=== PATIENT | female | born 1970 | race Caucasian/White ===

== ENCOUNTER 2016-05-23 19:01 | Emergency (ER) | payer OTHER ==
[2016-05-23 19:44] VITALS: BP 96/56
[2016-05-23] MEDS ORDERED: Sulfamethox/Trimethoprim DS 800/160* TAB PO ONE (20:01)
[2016-05-23] MEDS ORDERED: Phenazopyridine TAB* 100 MG PO ONE (20:01)
--- NOTE | 2016-05-23 21:55 | UC ---
Complaint Female HPI - HPI Summary HPI Summary: Pt presents with c/o of urniary symptoms of frequency, urgency and dysuria. Pt also c/o of retained tampon. Pt states she place a tampon in her vagina 2 days ago and forgot that it was there and placed another one and removed only one tampon. Pt currently has her menses. - History Of Current Complaint Chief Complaint: UCGU Stated Complaint: personal Time Seen by Provider: 05/23/16 19:58 Hx Obtained From: Patient Hx Last Menstrual Period: CURRENT ?: No Onset/Duration: Sudden Onset - UTI symptoms, Gradual Onset - retained tampon Timing: Constant Severity Initially: Mild Severity Currently: Mild Pain Intensity: 0 Pain Scale Used: 0-10 Numeric Character: Dull, Burning Aggravating Factor(s): Urination Associated Signs And Symptoms: Positive: Back Pain - low back - Allergies/Home Medications Allergies/Adverse Reactions: Allergies Allergy/AdvReac Type Severity Reaction Status Date / Time Penicillins Allergy Intermediate Rash Verified 05/23/16 19:28 Gabapentin [From Neurontin] Allergy Nausea Verified 05/23/16 19:28 Home Medications: Home Medications Bupropion HCl [Wellbutrin Sr] 200 mg PO TID 05/23/16 [History Confirmed 05/23/16 ] Lamotrigine [Lamictal] 150 mg PO DAILY 05/23/16 [History Confirmed 05/23/16] guanFACINE TAB* [Tenex TAB*] 1 mg PO BID 05/23/16 [History Confirmed 05/23/16] traZODone TAB* [Desyrel TAB*] 50 mg PO BEDTIME 05/23/16 [History Confirmed 05/23] PMH/Surg Hx/FS Hx/Imm Hx Previously Healthy: Yes Endocrine History Of: Denies: Diabetes, Thyroid Disease, Hyperthyroidism, Hypothyroidism, Dyslipidemia Cardiovascular History Of: Denies: Cardiac Disorders, Hypertension, Pacemaker/ICD, Myocardial Infarction , Congestive Heart Failure, Atrial Fibrillation, Deep Vein Thrombosis, Bleeding Disorders Respiratory History Of: Reports: COPD GI/ History Of: Denies: Gastroesophageal Reflux, Ulcer, Gastrointestinal Bleed, Gall Bladder Disease, Kidney Stones, Diverticulitis, Renal Disease, Urosepsis Neurological History Of: Denies: TIA, CVA, Dementia, Seizures, Migraine Psychological History Of: Reports: Anxiety, Depression, Bipolar Disorder Cancer History Of: Denies: Lung Cancer, Colorectal Cancer, Breast Cancer, Prostate Cancer, Cervical Cancer Other History Of: Hepatitis C - Surgical History Surgical History: Yes Surgery Procedure, Year, and Place: foot; tubal ligation; cyst on labia- POS for MRSA,. LIVER BX. BREAST BX - Social History Alcohol Use: None Substance Use Type: None Substance Use Comment - Amount & Last Used: REHAB FOR MARIJUANA USE--36 DAYS W/ OUT USE. Smoking Status (MU): Former Smoker Type: Cigarettes Amount Used/How Often: 1/2 PPD When Did the Patient Quit Smoking/Using Tobacco: 36 DAYS AGO - Immunization History Most Recent Tetanus Shot: 3 yrs + Review of Systems Constitutional: Negative Skin: Negative Eyes: Negative ENT: Negative Respiratory: Negative Cardiovascular: Negative Gastrointestinal: Abdominal Pain - pelvic Genitourinary: Dysuria, Hematuria, Frequency, Urgency Motor: Negative Neurovascular: Negative Musculoskeletal: Negative Neurological: Negative Psychological: Negative All Other Systems Reviewed And Are Negative: Yes Physical Exam Triage Information Reviewed: Yes Appearance: Other: - anxious, fidgety Vital Signs: Initial Vital Signs Temp 97.5 F 05/23/16 19:17 Pulse 76 05/23/16 19:17 Resp 16 05/23/16 19:17 BP 96/56 05/23/16 19:17 Pulse Ox 97 05/23/16 19:17 Vital Signs Reviewed: Yes Eye Exam: Normal ENT Exam: Normal Neck exam: Normal Respiratory Exam: Normal Cardiovascular Exam: Normal Abdominal Exam: Other Abdomen Description: Positive: Other: - retained tampon removed without difficulty Musculoskeletal Exam: Normal Neurological Exam: Normal Psychological Exam: Normal Psychological: Positive: Other: - anxious, fidgety Skin Exam: Normal Complaint Female Dx - Differential Dx/Diagnosis Differential Diagnosis/HQI/PQRI: Urinary Tract Infection, Other - retained tampon Provider Diagnoses: UTI. retained tampon- removed intact Discharge - Discharge Plan Condition: Stable Disposition: HOME Prescriptions: Phenazopyridine TAB* [Pyridium 100 mg TAB*] 100 mg PO TID #3 tab Sulfamethox/Trimethoprim DS* [Bactrim DS 800/160 TAB*] 1 tab PO BID #14 tab Patient Education Materials: Urinary Tract Infection in Women (ED) Referrals: DIDIER Tamez [Primary Care Provider] - Additional Instructions: Retained tampon. Your tampon has been removed. Please monitor for any signs or symptoms that may indicate an infection, fever, pain, unusual vaginal discharge.
== END 2016-05-23 20:40 | disposition home or self-care (01) ==
LOC: UCCORT 19:01 → MERGE 19:01 → UCCORT 20:40
DX: N39.0 Urinary tract infection, site not specified (principal); R31.9 Hematuria, unspecified; T19.2XXA Foreign body in vulva and vagina, initial encounter; X58.XXXA Exposure to other specified factors, initial encounter; Y93.9 Activity, unspecified; Y92.9 Unspecified place or not applicable; Z88.0 Allergy status to penicillin; Z87.891 Personal history of nicotine dependence; Z32.02 Encounter for pregnancy test, result negative
CPT/HCPCS: 81003; 84702; 87077; 87086; 87186; 99213; A9270-GY; G0463

== ENCOUNTER 2016-12-17 09:04 | Emergency (ER) | payer SELFPAY ==
[2016-12-17] MEDS ORDERED: NS 0.9% 1000 ML* 1,000 ML IV ONE (09:21)
[2016-12-17] MEDS ORDERED: Pantoprazole IV* 40 MG IV ONE (09:21)
[2016-12-17] MEDS ORDERED: Albuterol/Ipratropium NEB.SOL* Albuterol 2.5 MG/Ipratropium 0.5 MG 3 ML INH SCH (10:00)
--- NOTE | 2016-12-17 10:15 | RAD ---
INDICATION: Productive cough with thick phlegm causing shortness of breath. Hemoptysis. Recent diagnosis of COPD. COMPARISON: October 28, 2016 chest radiograph and October 21, 2016 CT. TECHNIQUE: Dual energy PA and routine lateral views of the chest were obtained. REPORT: Elevated lung volumes and both diffuse mild prominence of the interstitial markings and patchy rarefaction of the mid to upper lung zone interstitial markings. No pulmonary infiltrate, focal pulmonary lesion, pleural effusion, pneumothorax. The heart, pulmonary vasculature, and mediastinal contours are unremarkable. Unremarkable soft tissue contours and osseous structures. IMPRESSION: Stigmata of obstructive lung disease. No acute pulmonary or cardiac process evident.
[2016-12-17 11:22] LABS: ALT 22 U/L (7-52); Albumin 4.5 g/dL (3.2-5.2); Alkaline Phosphatase 92 U/L (34-104); BUN/Creatinine Ratio 17.3 (8-20); Blood Urea Nitrogen 14 mg/dL (6-24); CO2 Carbon Dioxide 27 mmol/L (22-32); Chloride 103 mmol/L (101-111); EGFR African American 98.8 (>60); EGFR Non-African American 76.8 (>60); Globulin 3.5 g/dL (2-4); Glucose 125 mg/dL (70-100); Sodium 136 mmol/L (133-145)
[2016-12-17 11:23] LABS: Anion Gap 6 mmol/L (2-11)
[2016-12-17 11:44] LABS: Comments Flag Yes; Hematocrit 44 % (35-47); Hemoglobin 14.4 g/dl (12.0-16.0); Mean Corpuscular HGB Conc 33 g/dl (31-36); Mean Corpuscular Hemoglobin 27 pg (27-31); Mean Corpuscular Volume 81 fL (80-97); Red Blood Count 5.41 10^6/ul (4.0-5.4); Red Cell Distribution Width 17 % (10.5-15); White Blood Count 10.2 10^3/ul (3.5-10.8)
[2016-12-17 11:45] LABS: Add Diff/Slide Review? Slide Review Added
[2016-12-17] MEDS ORDERED: Azithromycin TAB* 250 MG PO ONE (11:51)
[2016-12-17 12:54] VITALS: BP 100/51
--- NOTE | 2016-12-19 08:08 | ED ---
Matty Fagan Angela, scribed for Stanton Garrett MD on 12/17/16 at 0936 . Abdominal Pain/Female - HPI Summary HPI Summary: This pt is a 46 y/o female presenting to [facility] c/o hematemesis and unexplained bruising x1 week. Pt reports that for the past 4 days she has had productive cough with thick sputum. She states that when she blows from her nose she has bloody and thick output. There are no alleviating or aggravating factors. Pt endorses chills and headache (for the past 3 days, yesterday worse). She denies fever. Pt is a current tobacco and marijuana smoker but denies alcohol use. She does not take albuterol. PMHx: Hepatitis C, MRSA and COPD. PSHx: surgery from abscess in MRSA. - History of Current Complaint Chief Complaint: EDAbdPain Stated Complaint: COUGH/VOMITING BLOOD Time Seen by Provider: 12/17/16 09:19 Hx Obtained From: Patient Hx Last Menstrual Period: CURRENT Onset/Duration: Lasting Days Timing: Days Pain Intensity: 2 Radiates: No Aggravating Factor(s): Nothing Alleviating Factor(s): Nothing Associated Signs and Symptoms: Positive: Cough, Vomiting - hematemesis, Other: - unexplained bruising, headache, chills.. Negative: Fever Allergies/Adverse Reactions: Allergies Allergy/AdvReac Type Severity Reaction Status Date / Time Penicillins Allergy Intermediate Rash Verified 10/31/16 16:50 Acetaminophen Allergy See Comment Verified 10/31/16 16:50 Gabapentin [From Neurontin] Allergy Nausea Verified 10/31/16 16:50 PMH/Surg Hx/FS Hx/Imm Hx Endocrine/Hematology History: Denies: Hx Diabetes, Hx Thyroid Disease Cardiovascular History: Denies: Hx Congestive Heart Failure, Hx Deep Vein Thrombosis, Hx Hypertension , Hx Myocardial Infarction, Hx Pacemaker/ICD Respiratory History: Reports: Hx Chronic Obstructive Pulmonary Disease (COPD) Denies: Hx Lung Cancer GI History: Reports: Hx Cirrhosis - Hep C - last labs 2014 Denies: Hx Gall Bladder Disease, Hx Gastrointestinal Bleed, Hx Ulcer, Hx Urosepsis History: Reports: Hx Kidney Infection - currently UTI Denies: Hx Kidney Stones, Hx Renal Disease Musculoskeletal History: Reports: Hx Arthritis - "OA of spine and hands", Other Musculoskeletal History - "Bone spurs" on the neck Neurological History: Reports: Hx Migraine Denies: Hx Dementia, Hx Seizures, Hx Transient Ischemic Attacks (TIA) Psychiatric History: Reports: Hx Anxiety, Hx Depression, Hx Post Traumatic Stress Disorder, Hx Bipolar Disorder, Hx Substance Abuse - Denies ETOH and drugs other than marijuana since Mar 2016 - s/p rehab - Surgical History Surgery Procedure, Year, and Place: foot; tubal ligation; cyst on labia- POS for MRSA,. LIVER BX. BREAST BX - Immunization History Date of Tetanus Vaccine: unk Date of Influenza Vaccine: none Infectious Disease History: Reports: Hx Hepatitis - C, Hx of Known/Suspected MRSA - bartholin cyst 01/2015 Denies: Hx Clostridium Difficile, Hx Human Immunodeficiency Virus (HIV), Hx Shingles, Hx Tuberculosis, Hx Known/Suspected VRE, Hx Known/Suspected VRSA, History Other Infectious Disease, Traveled Outside the [place] in Last 30 Days - Family History Known Family History: Positive: Cardiac Disease, Diabetes - Social History Alcohol Use: None Hx Substance Use: Yes Substance Use Type: Reports: Marijuana Substance Use Comment - Amount & Last Used: daily Hx Tobacco Use: Yes Smoking Status (MU): Light Every Day Tobacco Smoker Type: Cigarettes Amount Used/How Often: 1/2 PPD Review of Systems Positive: Chills. Negative: Fever Eyes: Negative ENT: Negative Positive: Cough Positive: Vomiting - hematemesis Positive: Bruising - unexplained All Other Systems Reviewed And Are Negative: Yes Physical Exam - Summary Physical Exam Summary: VITAL SIGNS: Reviewed. GENERAL: Patient is a well-developed and nourished female who is lying comfortable in the stretcher. Patient is not in any acute respiratory distress. HEAD AND FACE: No signs of trauma. No ecchymosis, hematomas or skull depressions. No sinus tenderness. EYES: PERRLA, EOMI x 2, No injected conjunctiva, no nystagmus. EARS: Hearing grossly intact. Ear canals and tympanic membranes are within normal limits. MOUTH: Oropharynx within normal limits. NECK: Supple, trachea is midline, no adenopathy, no JVD, no carotid bruit, no c- spine tenderness, neck with full ROM. CHEST: Symmetric, no tenderness at palpation LUNGS: There is slight wheezing and some crackles in both sides of the lungs. CVS: Regular rate and rhythm, S1 and S2 present, no murmurs or gallops appreciated. ABDOMEN: Soft, non-tender. No signs of distention. No rebound no guarding, and no masses palpated. Bowel sounds are normal. EXTREMITIES: FROM in all major joints, no edema, no cyanosis or clubbing. NEURO: Alert and oriented x 3. No acute neurological deficits. Speech is normal and follows commands. SKIN: Dry and warm Triage Information Reviewed: Yes Vital Signs On Initial Exam: Initial Vitals Temp Pulse Resp BP Pulse Ox 96.7 F 76 20 107/72 98 12/17/16 09:13 12/17/16 09:13 12/17/16 09:13 12/17/16 09:13 12/17/16 09:13 Vital Signs Reviewed: Yes Diagnostics - Vital Signs Vital Signs Temp Pulse Resp BP Pulse Ox 12/17/16 09:13 96.7 F 76 20 107/72 98 - Laboratory Lab Results: Lab Results 12/17/16 12/17/16 12/17/16 Range/Units 10:48 10:48 10:48 WBC 10.2 (3.5-10.8) 10^3/ul RBC 5.41 H (4.0-5.4) 10^6/ul Hgb 14.4 (12.0-16.0) g/dl Hct 44 (35-47) % MCV 81 (80-97) fL MCH 27 (27-31) pg MCHC 33 (31-36) g/dl RDW 17 H (10.5-15) % Plt Count (150-450) 10^3/ul MPV Not Reportable Neut % (Auto) 75.8 (38-83) % Lymph % (Auto) 17.3 L (25-47) % Williams % (Auto) 5.2 (1-9) % Eos % (Auto) 0.7 (0-6) % Baso % (Auto) 1.0 (0-2) % Absolute Neuts (auto) 7.7 (1.5-7.7) 10^3/ul Absolute Lymphs (auto) 1.8 (1.0-4.8) 10^3/ul Absolute Monos (auto) 0.5 (0-0.8) 10^3/ul Absolute Eos (auto) 0.1 (0-0.6) 10^3/ul Absolute Basos (auto) 0.1 (0-0.2) 10^3/ul Absolute Nucleated RBC 0.01 10^3/ul Nucleated RBC % 0.1 INR (Anticoag Therapy) 0.89 (0.89-1.11) APTT 33.7 (26.0-36.3) seconds Sodium 136 (133-145) mmol/L Potassium TNP Chloride 103 (101-111) mmol/L Carbon Dioxide 27 (22-32) mmol/L Anion Gap 6 (2-11) mmol/L BUN 14 (6-24) mg/dL Creatinine 0.81 (0.51-0.95) mg/dL Est GFR ( Amer) 98.8 (>60) Est GFR (Non-Af Amer) 76.8 (>60) BUN/Creatinine Ratio 17.3 (8-20) Glucose 125 H (70-100) mg/dL Calcium 10.0 (8.6-10.3) mg/dL Total Bilirubin 0.40 (0.2-1.0) mg/dL AST TNP ALT 22 (7-52) U/L Alkaline Phosphatase 92 (34-104) U/L Ammonia (16-53) mol/L Total Protein 8.0 (6.4-8.9) g/dL Albumin 4.5 (3.2-5.2) g/dL Globulin 3.5 (2-4) g/dL Albumin/Globulin Ratio 1.3 (1-3) Blood Type Antibody Screen 12/17/16 12/17/16 12/17/16 Range/Units 10:48 10:55 11:55 WBC (3.5-10.8) 10^3/ul RBC (4.0-5.4) 10^6/ul Hgb (12.0-16.0) g/dl Hct (35-47) % MCV (80-97) fL MCH (27-31) pg MCHC (31-36) g/dl RDW (10.5-15) % Plt Count (150-450) 10^3/ul MPV Neut % (Auto) (38-83) % Lymph % (Auto) (25-47) % Williams % (Auto) (1-9) % Eos % (Auto) (0-6) % Baso % (Auto) (0-2) % Absolute Neuts (auto) (1.5-7.7) 10^3/ul Absolute Lymphs (auto) (1.0-4.8) 10^3/ul Absolute Monos (auto) (0-0.8) 10^3/ul Absolute Eos (auto) (0-0.6) 10^3/ul Absolute Basos (auto) (0-0.2) 10^3/ul Absolute Nucleated RBC 10^3/ul Nucleated RBC % INR (Anticoag Therapy) (0.89-1.11) APTT (26.0-36.3) seconds Sodium (133-145) mmol/L Potassium 4.0 Chloride (101-111) mmol/L Carbon Dioxide (22-32) mmol/L Anion Gap (2-11) mmol/L BUN (6-24) mg/dL Creatinine (0.51-0.95) mg/dL Est GFR ( Amer) (>60) Est GFR (Non-Af Amer) (>60) BUN/Creatinine Ratio (8-20) Glucose (70-100) mg/dL Calcium (8.6-10.3) mg/dL Total Bilirubin (0.2-1.0) mg/dL AST 22 ALT (7-52) U/L Alkaline Phosphatase (34-104) U/L Ammonia 69 H (16-53) mol/L Total Protein (6.4-8.9) g/dL Albumin (3.2-5.2) g/dL Globulin (2-4) g/dL Albumin/Globulin Ratio (1-3) Blood Type O Positive Antibody Screen Negative Result Diagrams: 12/17/16 10:48 12/17/16 11:55 Lab Statement: Any lab studies that have been ordered have been reviewed, and results considered in the medical decision making process. - Radiology Chest XR Xray Interpretation: Positive (See Comments) - IMPRESSION: Stigmata of obstructive lung disease. No acute pulmonary or cardiac process evident. ED physician has reviewed this radiology report and agrees. Radiology Interpretation Completed By: Radiologist Abdominal Pain Fem Course/Dx - Course Course Of Treatment: This pt is a 46 y/o female presenting to [facility] c/o hematemesis and unexplained bruising x1 week. Pt reports that for the past 4 days she has had productive cough with thick sputum. She states that when she blows from her nose she has bloody and thick output. There are no alleviating or aggravating factors. Pt endorses chills and headache (for the past 3 days, yesterday worse). She denies fever. Pt is a current tobacco and marijuana smoker but denies alcohol use. She does not take albuterol. PMHx: Hepatitis C, MRSA and COPD. PSHx: surgery from abscess in MRSA. Test results without any significant abnormalities. Chest XR shows stigmata of obstructive lung disease. No acute pulmonary or cardiac process evident. I believe the pts symptoms are secondary to bronchitis, therefore the pt was given azithromycin. In the ED course, she was given albuterol and her symptoms have significantly improved. Pt will be discharged home with follow up from PCP. Pt is hemodynamically stable , alert and oriented x3. - Diagnoses Differential Diagnosis: Positive: Other - Bronchitis, Pneumonia, URI Provider Diagnoses: Bronchitis Discharge - Discharge Plan Condition: Stable Disposition: HOME Prescriptions: Albuterol HFA INHALER* [Ventolin HFA Inhaler*] 1 puff INH Q4H PRN #1 mdi PRN Reason: Shortness Of Breath Azithromycin TAB* [Zithromax TAB (Z-CLARITZA) 250 mg #6 tabs] 250 mg PO DAILY #4 tab Patient Education Materials: Acute Bronchitis (ED) Referrals: [facility] [place] [facility] [Outside] Additional Instructions: Please follow up with your primary care provider. RETURN TO THE ED FOR ANY WORSENING SYMPTOMS. The documentation as recorded by the Matty jaquez Angela accurately reflects the service I personally performed and the decisions made by me, Stanton Garrett MD.
== END 2016-12-17 13:54 | disposition home or self-care (01) ==
LOC: ED 09:04 → MERGE 09:04 → ED 13:54
DX: J40 Bronchitis, not specified as acute or chronic (principal); R05 Cough; R11.10 Vomiting, unspecified; K92.0 Hematemesis; F17.210 Nicotine dependence, cigarettes, uncomplicated
CPT/HCPCS: 36415; 71020; 80053; 82140; 85025; 85610; 85730; 86850; 86900; 86901; 96365; 99282; A9270-GY

== ENCOUNTER 2017-11-10 15:25 | Emergency (ER) | payer MEDICAID, OTHER ==
[2017-11-10 15:48] VITALS: BP 116/43
--- NOTE | 2017-11-10 16:13 | UC ---
Complaint Male HPI - History of Current Complaint Chief Complaint: UCGU Stated Complaint: URINARY Time Seen by Provider: 11/10/17 15:31 Pain Intensity: 0 - Allergies/Home Medications Allergies/Adverse Reactions: Allergies Allergy/AdvReac Type Severity Reaction Status Date / Time Penicillins Allergy Unknown Rash Verified 11/10/17 15:35 gabapentin Allergy Nausea Verified 11/10/17 15:35 acetaminophen AdvReac Unknown See Comment Verified 11/10/17 15:35 Home Medications: Home Medications Ibuprofen TAB* [Advil TAB*] 800 mg PO Q6H PRN 11/10/17 [History Confirmed ] PMH/Surg Hx/FS Hx/Imm Hx Other History Of: Hepatitis C - Surgical History Surgical History: Yes Surgery Procedure, Year, and Place: foot; tubal ligation; cyst on labia- POS for MRSA,. LIVER BX. BREAST BX - Family History Known Family History: Positive: Cardiac Disease, Diabetes - Social History Alcohol Use: None Substance Use Type: Marijuana Substance Use Comment - Amount & Last Used: OCCSIONALLY Smoking Status (MU): Former Smoker Type: Cigarettes Amount Used/How Often: 1/2 PPD Have You Smoked in the Last Year: Yes When Did the Patient Quit Smoking/Using Tobacco: AUGUST 2017 - Immunization History Most Recent Tetanus Shot: 3 yrs + Physical Exam Vital Signs: Initial Vital Signs Temp 97.6 F 11/10/17 15:37 Pulse 85 11/10/17 15:37 Resp 12 11/10/17 15:37 BP 116/43 11/10/17 15:37 Pulse Ox 99 11/10/17 15:37 Discharge - Sign-Out/Discharge Documenting (check all that apply): Patient Departure All imaging exams completed and their final reports reviewed: No Studies - Discharge Plan Condition: Stable Patient Education Materials: Urinary Tract Infection in Women (ED) Referrals: No Primary Care Phys,NOPCP [Primary Care Provider] - Additional Instructions: A urine culture is pending recheck for new or worsening symptoms recheck in 2 days if not better - Billing Disposition and Condition Condition: STABLE
--- NOTE | 2017-11-10 16:17 | UC ---
Complaint Female HPI - HPI Summary HPI Summary: The patient is a 46-year-old female with a 1-2 day history of urinary frequency urinary urgency and mild dysuria. She denies any back or belly pain. She denies any fever or chills. Denies any vaginal discharge or itching. She has had frequent UTIs in the past. Denies any history of pyelonephritis or kidney stone. - History Of Current Complaint Chief Complaint: UCGU Stated Complaint: URINARY Time Seen by Provider: 11/10/17 15:31 Hx Obtained From: Patient Hx Last Menstrual Period: 11/07/17 STATES GOING THROUGH MENOPAUSE Onset/Duration: Gradual Onset, Lasting Days Timing: Constant Severity Initially: Mild Pain Intensity: 0 Pain Scale Used: 0-10 Numeric Character: Burning Aggravating Factor(s): Urination Alleviating Factor(s): Other Associated Signs And Symptoms: Negative: Fever, Back Pain, Vaginal Bleeding/ Discharge, Vaginal Discharge, Nausea, Vomiting(# Of Episodes =), Genital Swelling, Genital Blisters, Retained Foregin Body (Specify) - Allergies/Home Medications Allergies/Adverse Reactions: Allergies Allergy/AdvReac Type Severity Reaction Status Date / Time Penicillins Allergy Unknown Rash Verified 11/10/17 15:35 gabapentin Allergy Nausea Verified 11/10/17 15:35 acetaminophen AdvReac Unknown See Comment Verified 11/10/17 15:35 Home Medications: Home Medications Ibuprofen TAB* [Advil TAB*] 800 mg PO Q6H PRN 11/10/17 [History Confirmed ] PMH/Surg Hx/FS Hx/Imm Hx Previously Healthy: Yes Other History Of: Hepatitis C - Surgical History Surgical History: Yes Surgery Procedure, Year, and Place: foot; tubal ligation; cyst on labia- POS for MRSA,. LIVER BX. BREAST BX - Family History Known Family History: Positive: Cardiac Disease, Diabetes - Social History Alcohol Use: None Substance Use Type: Marijuana Substance Use Comment - Amount & Last Used: OCCSIONALLY Smoking Status (MU): Former Smoker Type: Cigarettes Amount Used/How Often: 1/2 PPD Have You Smoked in the Last Year: Yes When Did the Patient Quit Smoking/Using Tobacco: AUGUST 2017 - Immunization History Most Recent Tetanus Shot: 3 yrs + Review of Systems Constitutional: Negative Skin: Negative Eyes: Negative ENT: Negative Respiratory: Negative Cardiovascular: Negative Gastrointestinal: Negative Genitourinary: Dysuria, Frequency, Urgency Motor: Negative Neurovascular: Negative Musculoskeletal: Negative Neurological: Negative Psychological: Negative Is Patient Immunocompromised?: No All Other Systems Reviewed And Are Negative: Yes Physical Exam Triage Information Reviewed: Yes Appearance: Well-Appearing, No Pain Distress, Well-Nourished Vital Signs: Initial Vital Signs Temp 97.6 F 11/10/17 15:37 Pulse 85 11/10/17 15:37 Resp 12 11/10/17 15:37 BP 116/43 11/10/17 15:37 Pulse Ox 99 11/10/17 15:37 Vital Signs Reviewed: Yes Eyes: Positive: Conjunctiva Clear ENT: Positive: Pharynx normal. Negative: Nasal congestion, Nasal drainage, Tonsillar exudate, Trismus, Muffled voice, Hoarse voice Neck: Positive: Supple, Nontender, No Lymphadenopathy Respiratory: Positive: Chest non-tender, Lungs clear, Normal breath sounds, No respiratory distress Cardiovascular: Positive: RRR, No Murmur Abdomen Description: Positive: Nontender, No Organomegaly. Negative: CVA Tenderness (R), CVA Tenderness (L) Musculoskeletal: Positive: ROM Intact, No Edema Neurological: Positive: Alert Psychological Exam: Normal Skin Exam: Normal Complaint Female Dx - Differential Dx/Diagnosis Provider Diagnoses: UTI Discharge - Sign-Out/Discharge Documenting (check all that apply): Patient Departure All imaging exams completed and their final reports reviewed: No Studies - Discharge Plan Condition: Stable Disposition: HOME Prescriptions: Phenazopyridine TAB* [Pyridium TAB*] 100 mg PO TID #6 tab Sulfamethox/Trimethoprim DS* [Bactrim DS 800/160 TAB*] 1 tab PO BID #14 tab Patient Education Materials: Urinary Tract Infection in Women (ED) Referrals: No Primary Care Phys,NOPCP [Primary Care Provider] - Additional Instructions: A urine culture is pending recheck for new or worsening symptoms recheck in 2 days if not better - Billing Disposition and Condition Condition: STABLE Disposition: Home
== END 2017-11-10 16:17 | disposition home or self-care (01) ==
LOC: UCCORT 15:25
DX: N39.0 Urinary tract infection, site not specified (principal); Z88.0 Allergy status to penicillin; Z88.8 Allergy status to other drugs, medicaments and biological substances; Z88.4 Allergy status to anesthetic agent; Z87.891 Personal history of nicotine dependence
CPT/HCPCS: 81003; 87086; 99212; G0463

== ENCOUNTER 2017-11-14 13:05 | Emergency (ER) | payer MEDICAID ==
[2017-11-14 13:43] VITALS: BP 90/57
--- NOTE | 2017-11-14 15:05 | ED ---
GI/ HPI - HPI Summary HPI Summary: 46 yr old female with the complaint of dysuria, frequency, hesitancy of urination. She complains of a foul smell to her urine. She state she was put on Bactrim DS without any improvement. Denies fever chills, back pain. She has some supra pubic discomfort. - History of Current Complaint Chief Complaint: UCGU Time Seen by Provider: 11/14/17 14:34 Stated Complaint: RECHECK UTI Hx Last Menstrual Period: 11/07/17 STATES GOING THROUGH MENOPAUSE Pain Intensity: 6 - Allergy/Home Medications Allergies/Adverse Reactions: Allergies Allergy/AdvReac Type Severity Reaction Status Date / Time Penicillins Allergy Unknown Rash Verified 11/10/17 15:35 gabapentin Allergy Nausea Verified 11/10/17 15:35 acetaminophen AdvReac Unknown See Comment Verified 11/10/17 15:35 PMH/Surg Hx/FS Hx/Imm Hx Endocrine/Hematology History: Denies: Hx Diabetes, Hx Thyroid Disease Cardiovascular History: Denies: Hx Congestive Heart Failure, Hx Deep Vein Thrombosis, Hx Hypertension , Hx Myocardial Infarction, Hx Pacemaker/ICD Respiratory History: Reports: Hx Chronic Obstructive Pulmonary Disease (COPD) Denies: Hx Lung Cancer GI History: Reports: Hx Cirrhosis - Hep C - last labs 2014 Denies: Hx Gall Bladder Disease, Hx Gastrointestinal Bleed, Hx Ulcer, Hx Urosepsis History: Reports: Hx Kidney Infection - currently UTI Denies: Hx Kidney Stones, Hx Renal Disease Musculoskeletal History: Reports: Hx Arthritis - "OA of spine and hands", Other Musculoskeletal History - "Bone spurs" on the neck Neurological History: Reports: Hx Migraine Denies: Hx Dementia, Hx Seizures, Hx Transient Ischemic Attacks (TIA) Psychiatric History: Reports: Hx Anxiety, Hx Depression, Hx Post Traumatic Stress Disorder, Hx Bipolar Disorder, Hx Substance Abuse - Denies ETOH and drugs other than marijuana since Mar 2016 - s/p rehab - Surgical History Surgery Procedure, Year, and Place: foot; tubal ligation; cyst on labia- POS for MRSA,. LIVER BX. BREAST BX - Immunization History Date of Tetanus Vaccine: unk Date of Influenza Vaccine: none Infectious Disease History: Yes Infectious Disease History: Reports: Hx Hepatitis - C, Hx of Known/Suspected MRSA Denies: Hx Clostridium Difficile, Hx Human Immunodeficiency Virus (HIV), Hx Shingles, Hx Tuberculosis, Hx Known/Suspected VRE, Hx Known/Suspected VRSA, History Other Infectious Disease, Traveled Outside the [place] in Last 30 Days - Family History Known Family History: Positive: Cardiac Disease, Diabetes - Social History Alcohol Use: None Hx Substance Use: Yes Substance Use Type: Reports: Marijuana Substance Use Comment - Amount & Last Used: OCCSIONALLY Hx Tobacco Use: Yes Smoking Status (MU): Former Smoker Type: Cigarettes Amount Used/How Often: 1/2 PPD Have You Smoked in the Last Year: Yes Review of Systems Constitutional: Negative Negative: Fever, Chills Positive: dysuria, frequency, urgency All Other Systems Reviewed And Are Negative: Yes Physical Exam Triage Information Reviewed: Yes Vital Signs On Initial Exam: Initial Vitals Temp Pulse Resp BP Pulse Ox 98.3 F 63 21 90/57 98 11/14/17 13:34 11/14/17 13:34 11/14/17 13:34 11/14/17 13:34 11/14/17 13:34 Vital Signs Reviewed: Yes Appearance: Positive: Well-Appearing, No Pain Distress Skin: Positive: Warm, Skin Color Reflects Adequate Perfusion Head/Face: Positive: Normal Head/Face Inspection Eyes: Positive: EOMI ENT: Positive: Normal ENT inspection Neck: Positive: Nontender Respiratory/Lung Sounds: Positive: Clear to Auscultation, Breath Sounds Present Cardiovascular: Positive: RRR. Negative: Murmur Abdomen Description: Positive: Nontender. Negative: CVA Tenderness (R), CVA Tenderness (L), Distended Musculoskeletal: Positive: Strength/ROM Intact Neurological: Positive: Sensory/Motor Intact, Alert, Oriented to Person Place, Time, CN Intact II-III Psychiatric: Positive: Normal - Ingrid Coma Scale Best Eye Response: 4 - Spontaneous Best Motor Response: 6 - Obeys Commands Best Verbal Response: 5 - Oriented Coma Scale Total: 15 Diagnostics - Vital Signs Vital Signs Temp Pulse Resp BP Pulse Ox 11/14/17 13:34 98.3 F 63 21 90/57 98 - Laboratory Lab Results: Lab Results 11/14/17 11/14/17 Range/Units 14:46 14:49 POC Urine Color Yellow POC Urine Clarity Clear POC Urine pH 6.5 (5-9) POC Ur Specif [place] 1.025 (1.010-1.030) POC Urine Protein Negative (Negative) POC Ur Glucose (UA) Negative (Negative) POC Urine Ketones Negative (Negative) POC Urine Blood Negative (Negative) POC Urine Nitrite Negative (Negative) POC Urine Bilirubin Negative (Negative) POC Urine Urobilinogen 0.2 (Negative) POC U Leukocyte Esteras Negative (Negative) POC Ur Test Negative (Negative) Lab Statement: Any lab studies that have been ordered have been reviewed, and results considered in the medical decision making process. GIGU Course/Dx - Course Course Of Treatment: Patient eloped. She refused pelvic exam, and walked out. - Diagnoses Provider Diagnoses: Dysuria Discharge - Sign-Out/Discharge Documenting (check all that apply): Patient Departure All imaging exams completed and their final reports reviewed: No Studies - Discharge Plan Condition: Good Disposition: ELOPEMENT Patient Education Materials: Dysuria (ED) Referrals: No Primary Care Phys,NOPCP [Primary Care Provider] - - Billing Disposition and Condition Condition: GOOD Disposition: Elopement
== END 2017-11-14 15:28 | disposition home or self-care (01) ==
LOC: UCCORT 13:05
DX: R30.0 Dysuria (principal); R35.0 Frequency of micturition; R39.11 Hesitancy of micturition; Z88.0 Allergy status to penicillin; Z88.8 Allergy status to other drugs, medicaments and biological substances; Z88.6 Allergy status to analgesic agent; Z87.891 Personal history of nicotine dependence
CPT/HCPCS: 81003; 84702; 87086; 99212; G0463

== ENCOUNTER 2017-12-24 10:54 | Emergency (ER) | payer MEDICAID, OTHER ==
[2017-12-24 11:08] VITALS: BP 118/78
--- NOTE | 2017-12-24 11:36 | UC ---
Complaint Female HPI - HPI Summary HPI Summary: Pt presents with c/o of urinary frequency and "foul smelling urine X 1 week. Denies dysuria. Pt states that "she knows her body" and that she has a "bladder infection". Pt is very "fidgety" and states that she is in a hurry to get to work. Denies risk of STD - History Of Current Complaint Chief Complaint: UCGU Stated Complaint: URINARY COMPLAINT Time Seen by Provider: 12/24/17 11:24 Hx Obtained From: Patient Hx Last Menstrual Period: 11/07/17 STATES GOING THROUGH MENOPAUSE ?: No Onset/Duration: Sudden Onset, Lasting Days, Still Present Timing: Constant Severity Initially: Mild Severity Currently: Mild Pain Intensity: 0 Aggravating Factor(s): Urination Alleviating Factor(s): Nothing Associated Signs And Symptoms: Positive: Negative - Risk Factors Ectopic Risk Factor: Negative Ovarian Torsion Risk Factor: Negative - Allergies/Home Medications Allergies/Adverse Reactions: Allergies Allergy/AdvReac Type Severity Reaction Status Date / Time Penicillins Allergy Unknown Rash Verified 12/24/17 11:05 acetaminophen AdvReac Unknown See Comment Verified 12/24/17 11:05 PMH/Surg Hx/FS Hx/Imm Hx Previously Healthy: Yes Respiratory History: COPD - pt quite smoking 1 year ago but smokes pot daily. Other History Of: Hepatitis C - Surgical History Surgical History: Yes Surgery Procedure, Year, and Place: foot; tubal ligation; cyst on labia- POS for MRSA,. LIVER BX. BREAST BX - Family History Known Family History: Positive: Cardiac Disease, Diabetes - Social History Alcohol Use: None Substance Use Type: Marijuana Substance Use Comment - Amount & Last Used: Daily & 12/24/17 Smoking Status (MU): Current Some Day Smoker Type: Cigars Amount Used/How Often: 1/2 PPD Have You Smoked in the Last Year: Yes When Did the Patient Quit Smoking/Using Tobacco: AUGUST 2017 - Immunization History Most Recent Tetanus Shot: 3 yrs + Vaccination Up to Date: No Review of Systems Constitutional: Negative Skin: Negative Eyes: Negative ENT: Negative Respiratory: Negative Cardiovascular: Negative Gastrointestinal: Negative Genitourinary: Frequency Motor: Negative Neurovascular: Negative Musculoskeletal: Negative Neurological: Negative Psychological: Negative Is Patient Immunocompromised?: No All Other Systems Reviewed And Are Negative: Yes Physical Exam Triage Information Reviewed: Yes Appearance: Well-Appearing Vital Signs: Initial Vital Signs Temp 97.3 F 12/24/17 11:03 Pulse 78 12/24/17 11:03 Resp 14 12/24/17 11:03 BP 118/78 12/24/17 11:03 Pulse Ox 100 12/24/17 11:03 Vital Signs Reviewed: Yes Eye Exam: Normal ENT Exam: Normal Dental Exam: Normal Neck exam: Normal Respiratory Exam: Normal Cardiovascular Exam: Normal Abdominal Exam: Normal Musculoskeletal Exam: Normal Neurological Exam: Normal Psychological Exam: Normal Skin Exam: Normal Complaint Female Dx - Differential Dx/Diagnosis Differential Diagnosis/HQI/PQRI: Urinary Tract Infection Provider Diagnoses: urinary frequency Discharge - Sign-Out/Discharge Documenting (check all that apply): Patient Departure All imaging exams completed and their final reports reviewed: No Studies - Discharge Plan Condition: Stable Disposition: HOME Prescriptions: Nitrofurantoin Monohyd/M-Cryst [Macrobid 100 mg Capsule] 100 mg PO Q12H #10 cap Patient Education Materials: Urinary Urgency and Frequency (DC) Referrals: No Primary Care Phys,NOPCP [Primary Care Provider] - [facility] [Outside] - If Needed - Billing Disposition and Condition Condition: STABLE Disposition: Home - Attestation Statements Provider Attestation: I was available for consult. This patient was seen by the ADRIAN. The patient was not presented to, seen by, or examined by me. -Sylvester
== END 2017-12-24 11:46 | disposition home or self-care (01) ==
LOC: UCCORT 10:54
DX: R35.0 Frequency of micturition (principal); J44.9 Chronic obstructive pulmonary disease, unspecified; F12.90 Cannabis use, unspecified, uncomplicated; B19.20 Unspecified viral hepatitis C without hepatic coma; Z88.0 Allergy status to penicillin; Z88.6 Allergy status to analgesic agent
CPT/HCPCS: 81003; 87086; 99212; G0463